=== PATIENT | female | born 1975 | race Two or more races ===

== ENCOUNTER 2021-06-27 08:09 | Outpatient (CLI) | payer OTHER | END 2021-06-27 08:18 | disposition home or self-care (01) | LOC: RAD 08:09 | PROVIDERS: ATTEND Orthopaedic Surgery | DX: S82.65XA Nondisplaced fracture of lateral malleolus of left fibula, initial encounter for closed fracture (principal) ==

== ENCOUNTER 2021-11-13 11:53 | Outpatient (CLI) | payer OTHER | END 2021-11-13 11:54 | disposition home or self-care (01) | LOC: LAB 11:53 | PROVIDERS: ATTEND Orthopaedic Surgery | DX: E56.1 Deficiency of vitamin K (principal) ==

== ENCOUNTER 2021-11-14 09:24 | Outpatient (CLI) | payer OTHER | END 2021-11-14 10:28 | disposition home or self-care (01) | LOC: NUCLEAR 09:24 | PROVIDERS: ATTEND Orthopaedic Surgery | DX: M81.0 Age-related osteoporosis without current pathological fracture (principal) ==